=== PATIENT | female | born 1965 | race Caucasian/White ===

== ENCOUNTER 2018-02-28 04:05 | Emergency (ER) | payer BC ==
--- NOTE | 2018-02-28 04:34 | ER Document Report ---
ED General <OSIEL NUNEZ - Last Filed: 02/28/18 07:26> <ANUEL PASCUAL - Last Filed: 02/28/18 09:45> - General Chief Complaint: Fall Injury Stated Complaint: POSSIBLE SEIZURE Time Seen by Provider: 02/28/18 04:19 Notes: Patient is a 53-year-old female comes emergency department for chief complaint of possible seizure, patient comes by EMS, patient tells me that she went to bed and then woke up on the floor. At first she states she remembers everything , then she states she does not remember everything. She states that she was arguing with her and went to bed. EMS reported that has been saw her doing shaking movements like she might of been having a seizure. EMS states that when they arrived has been was on top of the patient holding her down on the floor to help stop her seizures. Patient has abrasion to the face, reports head pain, left ankle pain, right arm and shoulder pain. She denies chest pain , abdominal pain, back pain, numbness, nausea or vomiting. She denies history of seizures. Past medical history of narcolepsy, hypothyroidism. Patient reportedly told EMS she had 2 glasses of wine but denies alcohol to me. Denies recreational drugs. Tetanus up-to-date within 5 years. (OSIEL NUNEZ) Past Medical History - General Information source: Patient - Social History Smoking Status: Never Smoker Frequency of alcohol use: Occasional Drug Abuse: None Lives with: Family Family History: Reviewed & Not Pertinent Neurological Medical History: Reports: Other - Narcolepsy Endocrine Medical History: Reports: Hx Hypothyroidism Psychiatric Medical History: Reports: Hx Anxiety - Immunizations Hx Diphtheria, Pertussis, Tetanus Vaccination: Yes <OSIEL NUNEZ - Last Filed: 02/28/18 07:26> Review of Systems - Review of Systems Constitutional: No symptoms reported EENT: No symptoms reported Cardiovascular: No symptoms reported Respiratory: No symptoms reported Gastrointestinal: No symptoms reported Genitourinary: No symptoms reported Female Genitourinary: No symptoms reported Musculoskeletal: See HPI Skin: See HPI Hematologic/Lymphatic: No symptoms reported Neurological/Psychological: See HPI <OSIEL NUNEZ - Last Filed: 02/28/18 07:26> Physical Exam <OSIEL NUNEZ - Last Filed: 02/28/18 07:26> <ANUEL PASCUAL - Last Filed: 02/28/18 09:45> - Vital signs Vitals: Resp Pulse Ox 13 100 02/28/18 04:27 02/28/18 04:27 - Notes Notes: GENERAL: Patient anxious but does not appear to be in distress. HEAD: Normocephalic, atraumatic. EYES: Pupils equal, round, and reactive to light. Extraocular movements intact. ENT: Oral mucosa moist, tongue midline. Nares patent, no nasal septal hematoma, TM's intact. Small abrasion at the tip of the nose, small abrasion on the lower lip, otherwise unremarkable ENT exam. NECK: Full range of motion. Supple. Trachea midline. LUNGS: Clear to auscultation bilaterally, no wheezes, rales, or rhonchi. No respiratory distress. HEART: Regular rate and rhythm. No murmur ABDOMEN: Soft, non-tender. Non-distended. Bowel sounds present in all 4 quadrants. EXTREMITIES: Small abrasion with tenderness over the left lateral malleolus, nontender lower extremities otherwise with normal distal neurovascular exam. Complains of pain with palpation of the right elbow and right shoulder, also complains of palpation over clavicles. Otherwise unremarkable. BACK: no cervical, thoracic, lumbar midline tenderness. No saddle anesthesia, normal distal neurovascular exam. NEUROLOGICAL: Alert and oriented x3. Normal speech. [cranial nerves II through XII grossly intact]. PSYCH: Anxious, talks very rapidly, easily becomes emotional, easily reassured. SKIN: Warm, dry, normal turgor. No rashes or lesions noted. (OSIEL NUNEZ) Course - Laboratory Result Diagrams: 02/28/18 04:21 02/28/18 04:21 <OSIEL NUNEZ - Last Filed: 02/28/18 07:26> - Laboratory Result Diagrams: 02/28/18 04:21 02/28/18 04:21 <ANUEL PASCUAL - Last Filed: 02/28/18 09:45> - Re-evaluation Re-evalutation: Patient is a poor historian and contradicts herself. She does not appear to be in any distress, small abrasions over the face, no other traumatic findings noted except for what appeared to be old bruises over the hands. No head trauma otherwise. Unremarkable abdominal, chest, back exams. Unremarkable vital signs. Because of reported loss of consciousness with EtOH, CAT scan of the head and neck were performed and are negative. CBC, chemistry, magnesium unremarkable. Alcohol shows 130s. On reevaluation patient talked at length about her relationship, just her findings and injuries, and ankle stirrup was placed, discussed the seizure possibility and neurology follow-up. She has seen a neurologist in the past, states she will see them again and have an EEG, precautions discussed. She declines any further evaluation or treatment. She states she is not suicidal or homicidal, states she is spoken to psychiatrist many times in the past and she has no new information to discuss, states she simply wants to go home and insists she feels safe at home. Stable at time of discharge. (OSIEL NUNEZ) 02/28/18 09:44 Prescription for Diastat written as Osiel YAO had verbally told the patient she needs this, as the patient does have a history of tonic-clonic seizures this is a reasonable thing to have at home. Use of this medication explained by Kimberlyn DELACRUZ. (ANUEL PASCUAL) - Vital Signs Vital signs: Temp Pulse Resp BP Pulse Ox 12 137/84 H 98 02/28/18 04:30 02/28/18 04:30 02/28/18 04:30 - Laboratory Laboratory results interpreted by me: 02/28/18 04:21 RDW 17.1 H Procedures - Immobilization Left ankle Pre-Proc Neuro Vasc Exam: Normal Immobilizer type: Rad wrap, Ankle stirrup Performed by: RN Post-Proc Neuro Vasc Exam: Normal Alignment checked and good: Yes <OSIEL NUNEZ - Last Filed: 02/28/18 07:26> Discharge <OSIEL NUNEZ - Last Filed: 02/28/18 07:26> <ANUEL PASCUAL - Last Filed: 02/28/18 09:45> - Discharge Clinical Impression: Observed seizure-like activity, Skin abrasion Fall Qualifiers: Encounter type: initial encounter Qualified Code(s): W19.XXXA - Unspecified fall, initial encounter Hand pain Qualifiers: Laterality: bilateral Qualified Code(s): M79.641 - Pain in right hand Shoulder pain Qualifiers: Chronicity: acute Laterality: bilateral Qualified Code(s): M25.511 - Pain in right shoulder Left ankle injury Qualifiers: Encounter type: initial encounter Qualified Code(s): S99.912A - Unspecified injury of left ankle, initial encounter Condition: Stable Disposition: HOME, SELF-CARE Additional Instructions: Your symptoms are concerning for seizure tonight. Please follow-up with your neurologist as we discussed, you need an EEG. Avoid dangerous situations for seizure could be fatal including bathtubs, swimming pools, etc. Avoid alcohol and driving until cleared by neurology. Your images do not show any fractures or concerning a normality's, shows arthritis in your neck, you have a left ankle sprain as well. Wear the ankle stirrup, ice to foot, elevate, symptoms should resolve with time. Return for any concerning symptoms including fever, passing out, repeat seizure, or any other concerning or worsening symptoms. Prescriptions: Diazepam [Diastat Acudial] 1 each RC ONCE PRN #1 kit PRN Reason: Seizures Referrals: BYRON IRELAND PA-C [ALLIED HEALTH PROFESSIONAL] - Follow up as needed
[2018-02-28 04:37] LABS: ABSOLUTE EOSINOPHILS # (AUTO) 0.1 10^3/uL (0.0-0.6); ABSOLUTE LYMPHOCYTES (AUTO) 1.2 10^3/uL (0.5-4.7); ABSOLUTE MONOCYTES (AUTO) 0.5 10^3/uL (0.1-1.4); ABSOLUTE NEUT (AUTO) 2.8 10^3/uL (1.7-8.2); BASOPHILS % (AUTO) 0.7 % (0-2); EOSINOPHILS % (AUTO) 2.7 % (0-6); HEMATOCRIT 36.5 % (36.0-47.0); HEMOGLOBIN 12.5 g/dL (12.0-15.5); LYMPHOCYTES % (AUTO) 26.3 % (13-45); MEAN CORPUSCULAR HEMOGLOBIN 31.7 pg (27.0-33.4); MEAN CORPUSCULAR HGB CONC 34.4 g/dL (32.0-36.0); MEAN CORPUSCULAR VOLUME 92 fl (80-97); MONOCYTES % (AUTO) 11.1 % (3-13); PLATELET COUNT 286 10^3/uL (150-450); RED BLOOD COUNT 3.96 10^6/uL (3.72-5.28); RED CELL DISTRIBUTION WIDTH 17.1 % (11.5-14.0); SEGMENTED NEUTROPHILS % (AUTO) 59.2 % (42-78); TOTAL CELLS COUNTED % (AUTO) 100 %; WHITE BLOOD COUNT 4.6 10^3/uL (4.0-10.5)
[2018-02-28 04:54] LABS: ALANINE AMINOTRANSFERASE 29 U/L (9-52); ALBUMIN 4.4 g/dL (3.5-5.0); ALCOHOL 132 mg/dL (NONE DETECTED); ALKALINE PHOSPHATASE 78 U/L (38-126); ANION GAP 19 (5-19); ASPARTATE AMINO TRANSFERASE 33 U/L (14-36); BILIRUBIN,DIRECT 0.2 mg/dL (0.0-0.4); BILIRUBIN,TOTAL 0.4 mg/dL (0.2-1.3); BLOOD UREA NITROGEN 15 mg/dL (7-20); CALCIUM 9.3 mg/dL (8.4-10.2); CARBON DIOXIDE 22 mmol/L (22-30); CHLORIDE 104 mmol/L (98-107); GLUCOSE 84 mg/dL (75-110); POTASSIUM 4.1 mmol/L (3.6-5.0); SODIUM 144.8 mmol/L (137-145); TOTAL PROTEIN 7.5 g/dL (6.3-8.2)
--- NOTE | 2018-02-28 05:17 | RADIOLOGY REPORT (SQ) ---
EXAM DESCRIPTION: CT HEAD WITHOUT IV CONTRAST COMPLETED DATE/TME: 02/28/2018 04:30 CLINICAL HISTORY: 53 years, Female, fall, head injury, ETOH COMPARISON: None. TECHNIQUE: Axial CT images of the brain were obtained without contrast. Sagittal and coronal reformats were performed. DL 1017 Images stored on PACS. All CT scanners at this facility use dose modulation, iterative reconstruction, and/or weight based dosing when appropriate to reduce radiation dose to as low as reasonably achievable (ALARA). [facility]: Dose Right [facility]: CareDose [facility]: Dose Right [facility]: Teradose 4D [facility]: Smart [employer] LIMITATIONS: None. FINDINGS: No acute infarct, hemorrhage, mass, edema, hemorrhage, hydrocephalus, or extra-axial fluid collection. The paranasal sinuses and mastoid air cells are clear. There is no acute fracture IMPRESSION: No acute intracranial abnormality TECHNICAL DOCUMENTATION: Quality ID # [id number]: Final reports with documentation of one or more dose reduction techniques (e.g., Automated exposure control, adjustment of the mA and/or kV according to patient size, use of iterative reconstruction technique) 2010 [email or web address]- All Rights Reserved
--- NOTE | 2018-02-28 05:19 | RADIOLOGY REPORT (SQ) ---
CT cervical spine without contrast on 02/28/2018 at 4:48 AM CLINICAL INDICATION: Pain after fall TECHNIQUE: Multiple axial images are obtained throughout the cervical spine without the administration of contrast. Sagittal and coronal reformatted images are also performed and reviewed. This exam was performed according to our departmental dose-optimization program, which includes automated exposure control, adjustment of the mA and/or kV according to patient size and/or use of iterative reconstruction technique. Total DLP is 325.22 mGy*cm. COMPARISON: None FINDINGS: There is mild reversal of the normal cervical lordosis. Degenerative disc disease is noted especially at C3-4 and from C5 through C7. There is minimal grade 1 spondylolisthesis at C4-5 and C7-T1 secondary to degenerative facet disease. Degenerative facet disease is noted bilaterally throughout the cervical spine but worse in the lower cervical spine. Reformatted images reveal otherwise normal alignment of the cervical spine. There is no prevertebral soft tissue swelling. Mild paraseptal emphysema is noted in the lung apices. There are no acute fracture lines. No definite disc herniation is noted. IMPRESSION: Degenerative changes with no acute abnormality.
--- NOTE | 2018-02-28 06:00 | RADIOLOGY REPORT (SQ) ---
Bilateral hand three view on 02/28/2018 at 5:18 AM CLINICAL INDICATION: Bilateral hand pain after fall COMPARISON: None FINDINGS: Right hand: Rings were left on the first and fourth digit obscuring details of the first and fourth proximal phalanges. Slight ulnar minus variant is noted. There are no fractures. 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 Visualized joints are well aligned. Left hand: Rings were left on the first, second and fourth digits obscuring details of the first, second and fourth proximal phalanges. There are no fractures. Visualized joints are well aligned. No bony abnormality is noted. IMPRESSION: No acute abnormality in either hand.
--- NOTE | 2018-02-28 06:02 | RADIOLOGY REPORT (SQ) ---
EXAM DESCRIPTION: XR CHEST 2 VIEWS COMPLETED DATE/TME: 02/28/2018 04:31 CLINICAL HISTORY: 53 years, Female, fall, pain COMPARISON: None. NUMBER OF VIEWS: Two TECHNIQUE: Two views of the chest LIMITATIONS: None. FINDINGS: The lungs are clear. The heart is normal in size. There is no pneumothorax or pleural effusion. There is no acute fracture IMPRESSION: No acute cardiopulmonary abnormality 2010 [employer]- All Rights Reserved
--- NOTE | 2018-02-28 06:02 | RADIOLOGY REPORT (SQ) ---
Left ankle three view on 02/28/2018 at 5:05 AM CLINICAL INDICATION: Ankle pain after fall COMPARISON: None FINDINGS: There are no fractures. The ankle mortise is intact. Visualized joints are well aligned. No bony abnormality is noted. IMPRESSION: No acute bony abnormality.
--- NOTE | 2018-02-28 06:30 | RADIOLOGY REPORT (SQ) ---
Right elbow four view on 02/28/2018 at 6:18 AM CLINICAL INDICATION: Elbow pain after fall COMPARISON: None FINDINGS: There are no fractures. Visualized joints are well aligned. No joint effusion is noted to suggest an occult fracture. No bony abnormality is noted. IMPRESSION: No acute bony abnormality.
[2018-02-28 06:56] VITALS: BP 137/84
== END 2018-02-28 09:25 | disposition home or self-care (01) ==
LOC: ER 04:05
DX: S00.81XA Abrasion of other part of head, initial encounter (principal); S99.912A Unspecified injury of left ankle, initial encounter; R56.9 Unspecified convulsions; M79.641 Pain in right hand; M25.511 Pain in right shoulder; W19.XXXA Unspecified fall, initial encounter
CPT/HCPCS: 99284; 36415; 80307; 83735; 85025; 80053; 73610; 71046; 73080; 73130; 70450; 72125; L1902